=== PATIENT | female | born 1955 | race African-American/Black ===

== ENCOUNTER → 2016-11-02 | Outpatient (CLI) | payer OTHER | END | disposition home or self-care (01) | LOC: PCVCIMAG 13:58 | PROVIDERS: ATTEND Nuclear Medicine Nuclear Cardiology | DX: I70.203 Unspecified atherosclerosis of native arteries of extremities, bilateral legs (principal); I25.10 Atherosclerotic heart disease of native coronary artery without angina pectoris; I77.9 Disorder of arteries and arterioles, unspecified; I10 Essential (primary) hypertension; E11.9 Type 2 diabetes mellitus without complications; G62.9 Polyneuropathy, unspecified | CPT/HCPCS: 93925 ==

== ENCOUNTER → 2017-05-09 | Outpatient (CLI) | payer OTHER ==
--- NOTE | 2017-05-09 13:28 | PCVCIMAG ---
APPROVED REPORT Patient Location: Out-Patient Indications Stenosis Doppler Spectral Velocity Analysis PSV / EDVPSV / EDV ECA (R) 82 / 8 cm/sECA (L) 69 / 8 cm/s dICA (R)dICA (L) 70 / 25 cm/s Olivia (R) Olivia (L) 72 / 21 cm/s pICA (R) 0 / 0 cm/spICA (L) 64 / 17 cm/s Bulb (R) 0 / 0 cm/sBulb (L) 52 / 15 cm/s dCCA (R) 65 / 9 cm/sdCCA (L) 81 / 14 cm/s mCCA (R) 86 / 12 cm/smCCA (L) 87 / 21 cm/s Vert (R) 38 / 13 cm/sVert (L) 46 / 12 cm/s ICA/CCA ICA/CCA Findings The right carotid bulb has severe plaque. The right proximal internal carotid artery shows complete, chronic occlusion The right common carotid artery shows no significant stenosis. The right external carotid artery shows no significant stenosis. The left carotid bulb has mild plaque. The left proximal internal carotid artery shows no significant stenosis. The left common carotid artery shows no significant stenosis. The left external carotid artery shows no significant stenosis. Conclusion 1. Chronic, complete right internal carotid artery occlusion 2. Left internal carotid plaquing without significant stenosis 3. Antegrade vertebral flow
--- NOTE | 2017-05-09 14:30 | PCVCIMAG ---
EXAM: BILATERAL LOWER EXTREMITY ARTERIAL DUPLEX INDICATION: Peripheral Arterial Disease. Leg pain. FINDINGS: Right Leg: Satisfactory arterial waveforms in the common femoral and profunda femoral arteries and throughout the superficial femoral artery and popliteal arteries. Previous stent distal superficial femoral artery remains patent. Occlusion of the anterior and posterior tibial arteries. The peroneal artery is patent. Left Leg: Satisfactory arterial waveforms in the common femoral and profunda femoral arteries and throughout the superficial femoral artery and popliteal arteries. Previous stent in the mid/distal superficial femoral artery maintaining good patency. The anterior and posterior tibial arteries are occluded. The peroneal artery is patent. IMPRESSION: No SFA or popliteal artery stenosis bilaterally with previous bilateral superficial femoral artery stent maintaining satisfactory patency. Unchanged occlusion of the right and left anterior and posterior tibial arteries. LOC:[id number]
== END | disposition home or self-care (01) ==
LOC: PCVCIMAG 13:23
PROVIDERS: ATTEND Nuclear Medicine Nuclear Cardiology
DX: I65.23 Occlusion and stenosis of bilateral carotid arteries (principal); I10 Essential (primary) hypertension; E78.5 Hyperlipidemia, unspecified; E11.9 Type 2 diabetes mellitus without complications; I77.1 Stricture of artery; I73.9 Peripheral vascular disease, unspecified; Z95.828 Presence of other vascular implants and grafts
CPT/HCPCS: 93880; 93925; G0463

== ENCOUNTER → 2018-05-11 | Outpatient (CLI) | payer MEDICARE, OTHER ==
--- NOTE | 2018-05-11 13:45 | PCVCIMAG ---
EXAM: BILATERAL CAROTID DUPLEX INDICATION: Carotid Occlusive Disease. FINDINGS: Doppler Measurements (centimeters per second): RIGHT: Peak CCA-77, Peak ECA-77, Diastolic ICA-0, Peak ICA-0, ICA/CCA Ratio-0. LEFT: Peak CCA-87, Peak ECA-56, Diastolic ICA-26, Peak ICA-72, ICA/CCA Ratio-0.8. RIGHT CAROTID: Chronic occlusion cervical internal carotid artery. The common carotid artery shows no significant stenosis. The external carotid artery shows no significant stenosis. LEFT CAROTID: The carotid bulb has mild plaque. The proximal internal carotid artery shows <40% stenosis. The common carotid artery shows no significant stenosis. The external carotid artery shows no significant stenosis. Antegrade flow in both vertebral arteries. IMPRESSION: Chronic occlusion cervical right internal carotid artery. <40% stenosis of the left internal carotid artery with mild plaque. No change since April 2017. LOC:[id number]
--- NOTE | 2018-05-11 15:07 | PCVCIMAG ---
EXAM: BILATERAL LOWER EXTREMITY ARTERIAL DUPLEX INDICATION: Peripheral Arterial Disease. Leg pain. FINDINGS: Right Leg: Common femoral and profunda femoral arteries are patent. Superficial femoral artery and popliteal artery maintaining adequate patency. Previous stent distal superficial femoral artery is patent. Previous stent tibioperoneal trunk and proximal peroneal artery is patent. Occlusion of the anterior tibial artery and mid/distal posterior tibial artery. Left Leg: Common femoral and femoral arteries are patent. Superficial femoral artery and popliteal artery is patent. Previous distal superficial femoral artery stent is patent. Previous stent distal popliteal is patent. The peroneal artery shows good patency throughout. The anterior tibial and posterior tibial arteries are occluded. IMPRESSION: Previous bilateral superficial femoral artery stents are patent. Previous distal left popliteal artery stent is patent. Previous right tibioperoneal trunk stent remains patent. Unchanged occlusion of the right and left anterior and posterior tibial arteries. LOC:[id number]
== END | disposition home or self-care (01) ==
LOC: PCVCIMAG 13:51
PROVIDERS: ATTEND Nuclear Medicine Nuclear Cardiology
DX: I65.23 Occlusion and stenosis of bilateral carotid arteries (principal); I73.9 Peripheral vascular disease, unspecified; I10 Essential (primary) hypertension; I77.9 Disorder of arteries and arterioles, unspecified; I25.10 Atherosclerotic heart disease of native coronary artery without angina pectoris; E11.9 Type 2 diabetes mellitus without complications; E78.00 Pure hypercholesterolemia, unspecified; F17.210 Nicotine dependence, cigarettes, uncomplicated; Z79.4 Long term (current) use of insulin; Z79.82 Long term (current) use of aspirin; Z79.84 Long term (current) use of oral hypoglycemic drugs
CPT/HCPCS: 93880; 93925; G0463

== ENCOUNTER → 2019-05-10 | Outpatient (CLI) | payer MEDICARE, OTHER ==
--- NOTE | 2019-05-10 08:48 | PCVCIMAG ---
EXAM: BILATERAL CAROTID DUPLEX INDICATION: Carotid Occlusive Disease. FINDINGS: Doppler Measurements (centimeters per second): RIGHT: Peak CCA-109, Peak ECA-79, Diastolic ICA-0, Peak ICA-0, ICA/CCA Ratio-0. LEFT: Peak CCA-99, Peak ECA-79, Diastolic ICA-30, Peak ICA-79, ICA/CCA Ratio-0.8. RIGHT CAROTID: Chronic occlusion cervical internal carotid artery. The common carotid artery shows no significant stenosis. The external carotid artery shows no significant stenosis. LEFT CAROTID: The carotid bulb has mild plaque. The proximal internal carotid artery shows <40% stenosis. The common carotid artery shows no significant stenosis. The external carotid artery shows no significant stenosis. Antegrade flow in both vertebral arteries. IMPRESSION: Chronic occlusion cervical right internal carotid artery. <40% stenosis of the left internal carotid artery with mild plaque. No change since April 2018. LOC:[id number]
--- NOTE | 2019-05-10 09:58 | PCVCIMAG ---
EXAM: BILATERAL LOWER EXTREMITY ARTERIAL DUPLEX INDICATION: Peripheral Arterial Disease. Leg pain. FINDINGS: Right Leg: Common femoral and profunda femoral artery are patent. Superficial femoral artery and popliteal artery maintaining adequate patency. Previous stent distal superficial femoral artery is patent. Previous stent tibioperoneal trunk and proximal peroneal artery is patent. Occlusion of the anterior tibial artery and mid/distal posterior tibial artery. Left Leg: Common femoral and profunda femoral arteries are patent. Superficial femoral artery and popliteal artery are patent. Previous distal superficial femoral artery stent is patent. Previous stent distal popliteal artery is patent. The peroneal artery shows good patency throughout. The anterior tibial and posterior tibial arteries are occluded. IMPRESSION: Previous bilateral superficial femoral artery stents are patent. Previous distal left popliteal artery stent is patent. Previous right tibioperoneal trunk stent remains patent. Unchanged occlusion of the right and left anterior and posterior tibial arteries. LOC:[id number]
== END | disposition home or self-care (01) ==
LOC: PCVCIMAG 08:40
PROVIDERS: ATTEND Nuclear Medicine Nuclear Cardiology
DX: I65.23 Occlusion and stenosis of bilateral carotid arteries (principal); I73.9 Peripheral vascular disease, unspecified; I25.10 Atherosclerotic heart disease of native coronary artery without angina pectoris; I10 Essential (primary) hypertension; E78.00 Pure hypercholesterolemia, unspecified; E11.9 Type 2 diabetes mellitus without complications; F17.210 Nicotine dependence, cigarettes, uncomplicated; E78.5 Hyperlipidemia, unspecified; I77.9 Disorder of arteries and arterioles, unspecified; Z90.49 Acquired absence of other specified parts of digestive tract; Z72.89 Other problems related to lifestyle; Z88.8 Allergy status to other drugs, medicaments and biological substances; Z79.899 Other long term (current) drug therapy; Z79.82 Long term (current) use of aspirin
CPT/HCPCS: 93005; 93880; 93925; G0463

== ENCOUNTER → 2019-06-25 | Outpatient (CLI) | payer MEDICARE, OTHER ==
[~2019-06-25] MED LIST: REGADENOSON 0.4 MG/5 ML DISP.SYRIN. IV ONE
--- NOTE | 2019-06-25 17:37 | PCVCIMAG ---
APPROVED REPORT Imaging Protocol: Rest Tc-99m/Stress Tc-99m 1 day Study performed: 06/25/2019 09:13:20 Indication: CAD Patient Location: Out-Patient Stress Nurse: Mai Stoner RN, Raquel Waite RN DC Tech:Lynda Holguintico [facility] Ht: 6 ft 1 in Wt: 255 lbs BSA: 2.39 m2 HR: 99 bpm BP: 169/80 mmHg BMI: 33.6 Rhythm: Sinus Rhythm Medical History Medical History: CAD, CVD, HTN, Hyperlipidemia, PVD, Diabetes, Current Smoker Medications: Aspirin, Amlodipine, Metoprolol, Micardis Allergies: Tagamet Cardiac Risk Factors: Age Previous Cardiac Procedures: 2009 PCI - LAD Pretest Chest Pain Characteristics: No chest pain Physical Disabilities: Walks with a cane Meds Held (24 hrs): Metoprolol Resting Data Rest SPECT myocardial perfusion imaging was performed in supine position 45 minutes following the intravenous injection of 10.5 mCi of Tc-99m Sestamibi. Time of rest injection: 0830 Administration Route: IV Administration Site: Right Hand Pharmacologic Stress Pharmacologic stress test was performed by injecting Regadenoson 0.4 mg IV push over 10-15 seconds immediately followed by the intravenous injection of 32 mCi of Tc-99m Sestamibi. Time of stress injection: 1020 Date: 06/25/2019 Administration Route: IV Administration Site: Right Hand Gated Stress SPECT was performed 45 minutes after stress injection. The images were gated to evaluate regional wall motion and calculate left ventricular ejection fraction. Stress Test Details Stress Test: Pharmacologic stress testing performed using 0.4 mg of regadenoson per 5 mL given IV over 10 seconds. Reason for pharmacologic stress test: physical limitation, walks with a cane. HRMax Heart Rate (APMHR): 154 bpm Resting HR: 99 bpmTarget HR (85% APMHR): 130 bpm Max HR Achieved: 114 bpm % of APMHR: 74 Recovery HR: 100 bpm BP Resting BP: 169/80 mmHg Max BP: 147/85 mmHg Recovery BP: 137/62 mmHg ECG Resting ECG: Sinus Rhythm Stress ECG: Sinus Tachycardia Arrhythmia: PVC's Recovery ECG: Sinus Tachycardia Clinical Reason for Termination: Completed protocol Stress Symptoms: Dyspnea Symptoms resolved with caffeine. Stress ECG Conclusion ECG: Non-ischemic Study Quality Study: Good Study Data Post stress, the left ventricular ejection was 52%.. SSS: 15 SRS: 11 SDS: 4 TID = 0.97. 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 Medium sized area of moderate reversible ischemia involving the mid/basal inferolateral left ventricle consistent with a circumflex distribution. 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 Medium sized area of moderate reversible ischemia involving the mid/basal inferolateral left ventricle consistent with a circumflex distribution has developed since May 2016. Post stress, the left ventricular ejection was 52%. Interpreted by: David Wren MD Electronically Approved: 06/25/2019 15:24:24 <Conclusion> ECG: Non-ischemic
== END | disposition home or self-care (01) ==
LOC: PCVCIMAG 07:49
PROVIDERS: ATTEND Internal Medicine Cardiovascular Disease
DX: I25.10 Atherosclerotic heart disease of native coronary artery without angina pectoris (principal); F17.200 Nicotine dependence, unspecified, uncomplicated; E11.65 Type 2 diabetes mellitus with hyperglycemia
CPT/HCPCS: 78452; 93017; A9500; J2785

== ENCOUNTER → 2019-06-27 | Outpatient (CLI) | payer MEDICARE, OTHER ==
--- NOTE | 2019-06-27 14:24 | PCVCIMAG ---
APPROVED REPORT Study performed: 06/27/2019 12:15:52 EXAM: Comprehensive 2D, Doppler, and color-flow Echocardiogram Patient Location: Echo lab Status: routine BSA: 2.37 HR: 85 bpmBP: 138/76 mmHg Rhythm: NSR Other Information Study Quality: Adequate Risk Factors: Cardiac Risk Factors: HTN, Hyperlipidemia, DM Indications CAD Hypertension/HDD 2D Dimensions IVSd: 8.78 (7-11mm)LVOT Diam: 21.80 (18-24mm) LVDd: 44.88 mm PWd: 8.86 (7-11mm)Ascending Ao: 35.20 (22-36mm) LVDs: 33.69 (25-40mm) Left Atrium: 28.75 (27-40mm) Aortic Root: 27.37 mm LV Single Plane 4CH: 56.41 % LV Single Plane 2CH: 61.40 % Biplane EF: 59.9 % Volumes Left Atrial Volume (Systole) Single Plane 4CH: 56.99 mLSingle Plane 2CH: 54.44 mL LA ESV Index: 26.00 mL/m2 Aortic Valve AoV Peak Tremaine.: 1.26 m/s AO Peak Gr.: 6.32 mmHgLVOT Max P.41 mmHg LVOT Max V: 1.05 m/s FELICE Vmax: 3.12 cm2 TDI Medial E' Tremaine.: 0.08 m/s Lateral E' Tremaine.: 0.12 m/s Pulmonary Valve PV Peak Gr.: 3.01 mmHg Pulmonary Vein P Vein S: 0.40 m/sP Vein A: 0.35 m/s P Vein D: 0.30 m/sP Vein A Dur.: 90.0 msec P Vein S/D Ratio: 1.33 Tricuspid Valve TR Peak Tremaine.: 2.48 m/s TR Peak Gr.: 24.63 mmHg Left Ventricle The left ventricle is normal size. Mild apical hypokinesis. Mild inferior hypokinesis. There is normal left ventricular wall thickness. Left ventricular systolic function is normal. The left ventricular ejection fraction is within the normal range. LVEF is 50-55%. Right Ventricle The right ventricle is normal size. The right ventricular systolic function is normal. Atria The left atrium size is normal. The right atrium size is normal. Aortic Valve The aortic valve is normal in structure. No aortic regurgitation is present. There is no aortic valvular stenosis. Mitral Valve Mild mitral annular calcification. Moderate mitral regurgitation. No evidence of mitral valve stenosis. Tricuspid Valve The tricuspid valve is normal in structure. Trace tricuspid regurgitation. Pulmonary artery pressure is 32mmhg. Pulmonic Valve The pulmonary valve is normal in structure. There is no pulmonic valvular regurgitation. Great Vessels The aortic root is normal in size. IVC is normal in size and collapses >50% with inspiration. Pericardium There is no pericardial effusion. <Conclusion> The left ventricle is normal size. Mild apical hypokinesis. Mild inferior hypokinesis. LVEF is 50-55%. The right ventricle is normal size. The left atrium size is normal. The aortic valve is normal in structure. Mild mitral annular calcification. Moderate mitral regurgitation. Trace tricuspid regurgitation. Pulmonary artery pressure is 32mmhg. The aortic root is normal in size. There is no pericardial effusion.
== END | disposition home or self-care (01) ==
LOC: PCVCIMAG 12:09
PROVIDERS: ATTEND Internal Medicine Cardiovascular Disease
DX: I34.0 Nonrheumatic mitral (valve) insufficiency (principal); I25.10 Atherosclerotic heart disease of native coronary artery without angina pectoris; I10 Essential (primary) hypertension; E11.9 Type 2 diabetes mellitus without complications; E78.00 Pure hypercholesterolemia, unspecified; F17.210 Nicotine dependence, cigarettes, uncomplicated; R94.39 Abnormal result of other cardiovascular function study; Z88.8 Allergy status to other drugs, medicaments and biological substances; Z79.82 Long term (current) use of aspirin; Z79.84 Long term (current) use of oral hypoglycemic drugs; Z79.899 Other long term (current) drug therapy
CPT/HCPCS: 36415; 93306; G0463

== ENCOUNTER → 2019-06-27 | Outpatient (CLI) | payer MEDICARE, OTHER | END | disposition home or self-care (01) | LOC: PCVCCLINIC 11:00 | PROVIDERS: ATTEND Internal Medicine Cardiovascular Disease | DX: R94.39 Abnormal result of other cardiovascular function study (principal); I25.10 Atherosclerotic heart disease of native coronary artery without angina pectoris; E78.00 Pure hypercholesterolemia, unspecified; I10 Essential (primary) hypertension; I73.9 Peripheral vascular disease, unspecified; E11.9 Type 2 diabetes mellitus without complications; F17.210 Nicotine dependence, cigarettes, uncomplicated; Z90.49 Acquired absence of other specified parts of digestive tract; Z90.09 Acquired absence of other part of head and neck; Z82.49 Family history of ischemic heart disease and other diseases of the circulatory system; Z82.3 Family history of stroke; Z72.89 Other problems related to lifestyle; Z79.899 Other long term (current) drug therapy; Z88.8 Allergy status to other drugs, medicaments and biological substances | CPT/HCPCS: 36415; G0463 ==